=== PATIENT | male | born 1975 | race Caucasian/White ===

== ENCOUNTER 2016-05-12 10:40 | Day surgery (SDC) | payer MEDICARE, OTHER ==
[~2016-05-12 10:40] MED LIST: ABILIFY5 PO; B121000P SC; BIST PO; CALMOSEPTINE O2.5 OZ TOP; CONSTULOSE PO; CORN STARCH; EFFEX75 PO; EFFEXOR XR150 MG PO; FOSAMAX35 MG PO; KLONO5 PO; LINZESS 145 M145 MCG PO; MENTHOL-ZINC OXIDE; METROGEL1 % TOP; MIRALAXPKT PO; NEXIUM20 M1 PO; PROTONIX PO; SELENIUM SULFIDE; SEROQUEL XR50 MG PO; VITAMIN D2000 UNIT PO
[2016-05-12] MEDS ORDERED: MULTI-VIT HP PO (12:09)
[2016-05-12] MEDS ORDERED: [UNRECOGNIZED DRUG - OTHER] TOP (12:10)
[2016-05-12 12:39] LABS: HEMATOCRIT 37.5 % (40.0-51.0); HEMOGLOBIN 12.9 g/dL (13.6-17.8)
[2016-05-12 12:56] LABS: BUN (BLOOD UREA NITROGEN) 17 MG/DL (6-23); CALCIUM, SERUM 9.1 MG/DL (8.5-10.4); CHLORIDE, SERUM 107 MMOL/L (96-112); CO2 (CARBON DIOXIDE) 28 MMOL/L (24-34); CREATININE 0.87 MG/DL (0.70-1.30); GFR AFRICAN AMERICAN 124 ML/MIN (>=60); GFR NON AFRICAN AMERICAN 107 ML/MIN (>=60); GLUCOSE, SERUM 72 MG/DL (60-99); POTASSIUM, SERUM 3.8 MMOL/L (3.5-5.3); SODIUM, SERUM 145 MMOL/L (135-148)
== END 2016-05-12 16:22 | disposition home or self-care (01) ==
LOC: IMGHOLD 10:40 → RADHOLD 10:49
PROVIDERS: Psychiatry & Neurology Neurology
PROC: B030YZZ Magnetic Resonance Imaging (MRI) of Brain using Other Contrast (ICD-10-PCS; principal; 2016-05-12)
PROC: BR37YZZ Magnetic Resonance Imaging (MRI) of Thoracic Spine using Other Contrast (ICD-10-PCS; 2016-05-12)
PROC: BR30YZZ Magnetic Resonance Imaging (MRI) of Cervical Spine using Other Contrast (ICD-10-PCS; 2016-05-12)
PROC: BR39YZZ Magnetic Resonance Imaging (MRI) of Lumbar Spine using Other Contrast (ICD-10-PCS; 2016-05-12)
DX: G93.89 Other specified disorders of brain (principal); G31.9 Degenerative disease of nervous system, unspecified; M47.22 Other spondylosis with radiculopathy, cervical region; M48.02 Spinal stenosis, cervical region; M50.11 Cervical disc disorder with radiculopathy, high cervical region; M50.221 Other cervical disc displacement at C4-C5 level; M50.122 Cervical disc disorder at C5-C6 level with radiculopathy; M50.223 Other cervical disc displacement at C6-C7 level; M48.8X4 Other specified spondylopathies, thoracic region; M47.27 Other spondylosis with radiculopathy, lumbosacral region; M51.17 Intervertebral disc disorders with radiculopathy, lumbosacral region; M48.06 Spinal stenosis, lumbar region; K80.20 Calculus of gallbladder without cholecystitis without obstruction; I10 Essential (primary) hypertension; K21.9 Gastro-esophageal reflux disease without esophagitis; F03.90 Unspecified dementia, unspecified severity, without behavioral disturbance, psychotic disturbance, mood disturbance, and anxiety; R62.50 Unspecified lack of expected normal physiological development in childhood; Z88.8 Allergy status to other drugs, medicaments and biological substances; Z79.83 Long term (current) use of bisphosphonates; Z79.2 Long term (current) use of antibiotics; Z79.899 Other long term (current) drug therapy
CPT/HCPCS: 70551; 72141; 72146; 72148; 80048; 85014; 85018; J2250; J2370; J2710; J3010

== ENCOUNTER 2016-06-29 18:13 | Emergency (ER) | payer MEDICARE, OTHER ==
[~2016-06-29 18:13] MED LIST changes: +MULTI-VIT HP PO; +[UNRECOGNIZED DRUG - OTHER] TOP
== END 2016-06-29 20:41 | disposition home or self-care (01) ==
LOC: ER 18:13
PROC: 0HQ0XZZ Repair Scalp Skin, External Approach (ICD-10-PCS; principal; 2016-06-29)
DX: S01.01XA Laceration without foreign body of scalp, initial encounter (principal); I10 Essential (primary) hypertension; K21.9 Gastro-esophageal reflux disease without esophagitis; Z88.8 Allergy status to other drugs, medicaments and biological substances; Z79.899 Other long term (current) drug therapy; W19.XXXA Unspecified fall, initial encounter
CPT/HCPCS: 70450; 72125; 96372; 99284